=== PATIENT | male | born 1950 | race Caucasian/White ===

== ENCOUNTER 2017-02-27 09:53 | Outpatient (RCR) | payer MEDICARE, OTHER ==
--- NOTE | 2016-10-10 08:28 | Oncology Note ---
Refill request from [facility] pharmacy for tamsulosin 0.4 mg tabs take 1 tab by mouth daily quantity 90 was refilled electronically today. GAUTAM ALVAREZ STOCK CUTTER-BC, ONC Oct 10, 2016 08:27
[2017-02-23 13:33] VITALS: BP 136/85
[2017-02-23 13:46] LABS: PLATELET COUNT, AUTOMATED 177 K/uL (150-450)
[~2017-02-27 09:53] MED LIST: ALB18R INH; ASC500 PO; ASPI-1471 PO; CIP500 PO; FAMO20TA28 PO; FLAX100042 PO; FLUT16SP19 NS; FLUT1AER INH; GLUC750T10 PO; HCTZ25 PO; HYDR-389 PO; HYDROCHLOROTHIAZIDE; IBUP800T37 PO; INDO-1 PO; LEVO-85 PO; LEVO500T83 PO; LUTE1CAP PO; LYSI500C3 PO; MELO-150 PO; MULT1CAP59 PO; NIA500 PO; NIAC-8 PO; OXYGENHOME INH; PAN40 PO; PERD PO; PHEN200T32 PO; PHENA200 PO; SILD100T59 PO; TAMS0.4C70 PO; TAMS0.4C76 PO; TERA1CAP36 PO; VITAMINS
== END 2017-02-27 13:44 | disposition home or self-care (01) ==
LOC: RAON 09:53
PROVIDERS: ATTEND Radiology Radiation Oncology
DX: Z85.46 Personal history of malignant neoplasm of prostate (principal); K21.9 Gastro-esophageal reflux disease without esophagitis; Z79.899 Other long term (current) drug therapy; Z92.3 Personal history of irradiation
CPT/HCPCS: 36415; 82040; 82247; 82310; 82374; 82435; 82565; 82947; 84075; 84132; 84153; 84155; 84295; 84450; 84460; 84520; 85025; 99212

== ENCOUNTER → 2018-03-22 | Outpatient (CLI) | payer MEDICARE, OTHER ==
[~2018-03-22] MED LIST changes: -INDO-1 PO; +INDO-21 PO; +IOPAMIDOL 61% ONE
--- NOTE | 2018-03-22 09:09 | RADIOLOGY IMAGING REPORT ---
FACILITY: [facility] PATIENT NAME: Glenn Medellin : 1950 MR: [id number] V: [id number] EXAM DATE: ORDERING PHYSICIAN: DMITRIY KINNEY TECHNOLOGIST: [facility] Patient: Glenn Medellin : 1950 Visit/Account:[id number] Date of Sevice: 03/22/2018 CT scan of the abdomen and pelvis without and with contrast. HISTORY: Prostate cancer. COMPARISON: 04/11/2016. 1 mm and [address] images were obtained of the abdomen and pelvis before and after intraven ous injection of 95 mL Isovue 300. No oral contrast. One of the following dose optimization techniq ues was utilized in the performance of this exam: Automated exposure control; adjustment of the mA an d/or kV according to the patient's size; or use of an iterative reconstruction technique. Specific details can be referenced in the facility's radiology CT exam operational policy. FINDINGS: The lung bases are clear. A small amount of air is present in the right ventricle probably introduce d during the contrast injection. The liver and spleen are normal in size and free of focal defects. The gallbladder and bile ducts ar e unremarkable. The pancreas is normal in size. The portal vein is patent. The kidneys and adrenal glands are normal in size. No hydronephrosis. A 5 mm fat-containing lesion is present in the poste rior inferior left kidney, essentially unchanged. The abdominal aorta and iliac arteries are mildly ectatic, tortuous, and calcified. Radiation seeds are present in the prostate gland. The urinary bladder is nonopacified. The ureters are normal in size. Unopacified bowel loops are scattered in the abdomen and pelvis. The appendix is normal in size. Degenerative changes are present in the spine. No bulky abdominal or pelvic ailyn opathy. Moderate amounts of stool are scattered in the colon and rectum. IMPRESSION: 6 mm left renal angiomyolipoma, unchanged. Otherwise negative for evidence of metastatic disease. Report Dictated By: Carlos Enrique Lew MD at 03/22/2018 8:52 AM Report E-Signed By: Carlos Enrique Lew MD at 03/22/2018 9:05 AM WSN:[email or web address]
--- NOTE | 2018-03-22 15:19 | RADIOLOGY IMAGING REPORT ---
FACILITY: PATIENT NAME: Glenn Medellin : 1950 MR: [id number] V: [id number] EXAM DATE: ORDERING PHYSICIAN: DMITRIY KINNEY TECHNOLOGIST: Location: [facility] Patient: Glenn Medellni : 1950 Visit/Account:[id number] Date of Sevice: 03/22/2018 NM BONE SCAN COMPLETE HISTORY: Prostate cancer with rising PSA ADDITIONAL HISTORY: None. TECHNIQUE: 24.7 mCi technetium 99m HDP was injected intravenously. Delayed anterior and posterior wh ole body gamma camera images were obtained. Additional gamma camera images: None. COMPARISON: Comparison bone scan 04/11/2016 negative for metastatic disease FINDINGS: Bone radiotracer activity: There is a focus of slight increased activity seen in the rostral sternum and a focus of activity seen in the right mandible which are both new from the previous examination. There is also a focus in the medial left tibial plateau and in the right tibiotalar joint and at the first CMC joints unchanged from the prior study compatible with arthrosis. Extraosseous radiotracer activity: Unremarkable. Renal and urinary collecting system activity: Unremarkable. IMPRESSION: New focal activity in the right mandible which may represent metastasis or be reflective of dental di sease. Subtle focus in the sternum, possible metastatic disease. 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
== END ==
LOC: NUC 01:26
DX: D17.79 Benign lipomatous neoplasm of other sites (principal)
CPT/HCPCS: 36415; 74178; 78306; 82565; A9503; Q9967

== ENCOUNTER 2018-03-26 11:59 | Outpatient (RCR) | payer MEDICARE, OTHER ==
[~2018-03-26 11:59] MED LIST changes: -IOPAMIDOL 61% ONE
[2018-03-26 12:36] VITALS: BP 132/76
[2018-03-26] MEDS ORDERED: FAMO-67 PO (12:42)
[2018-03-26] MEDS ORDERED: IBUP800T37 PO (12:42)
--- NOTE | 2018-03-26 21:22 | ONCOLOGY FOLLOW UP NOTE ---
EVENT DATE: March 26, 2018 CHIEF COMPLAINT/REASON FOR EVALUATION Patient is here to go over most recent PSA and to review updated imaging requested by Dr. Clemens, including the CT scan of the abdomen and pelvis and bone scan. ONCOLOGY HISTORY [place] 6 adenocarcinoma of the prostate, status post prostate brachytherapy 06/05/16. INTERVAL HISTORY Mr. Medellin was seen with his for a followup appointment today. Clinically, he is doing well in terms of his voiding function and generalized sense of well- being. He did have an episode four to eight weeks ago where he felt fairly run down and may have had infection at that time, according to his spouse. Patient denies any significant change in his voiding pattern. His AUA score is low at 2. His initial PSA prior to the brachytherapy was 5.2 ng/mL in May 2016. The PSA had fallen in August to 3.2 and then fallen again by half to 1.6 in February 2017. For some reason, the next PSA done at [facility] two weeks ago was elevated at 3.1 ng/mL. The patient was seen by Dr. Clemens. He was noted to have tenderness on rectal exam, and he has been started on a 30-day course of antibiotics with Bactrim DS. Patient does have an appointment to follow up with Dr. Clemens in a month. Dr. Clemens requested an updated CT scan of the abdomen and pelvis and bone scan. Those studies were obtained on 03/22/18, and I reviewed them personally with the patient and his spouse on the computer. Bone scan is entirely negative with no suspicious abnormalities. There was slight uptake in the mandible, which is related to recent dental procedures in the last year. There is a tiny area of activity in the sternum, but that is a common location between the manubrium and the body of the sternum for minor uptake only, so I think that is nonspecific and essentially normal. Ribs were entirely normal, lumbar spine normal, and pelvis normal. The CT scan images were then reviewed. No signs of any pelvic lymph node enlargement. Bony structures were normal. He was noted to have a 6 mm left renal angiomyolipoma, unchanged. Prostate seed implants appear to be in good generalized distribution with an even distribution across the prostate. There is a small area in the median lobe of the prostate that does not have seeds and commonly is very difficult to put radioactive seeds there without causing some obstructive symptoms or dysuria. The cancer typically is in the peripheral zone of the gland bilaterally, so most of the radiation is focused there. COMPREHENSIVE REVIEW OF SYSTEMS Entirely negative with exception of mild shortness of breath with exertion and some joint stiffness, chronic right shoulder stiffness. MEDICATIONS 1. Tamsulosin 0.4 mg a day. 2. Flonase. 3. Aspirin. 4. Oxygen 1L at night. 5. Albuterol inhaler p.r.n. 6. Breo Ellipta 100/25 q. day. 7. Gisella p.r.n. 8. Hydrochlorothiazide 25 mg a day. 9. PPI. 10. Meloxicam 15 mg a day. ALLERGIES CIPRO, FLOXIN, FORMALDEHYDE. PAST MEDICAL HISTORY 1. [place] 6 adenocarcinoma of the prostate involving the left middle lobe 04/03/16. 2. GERD. 3. Sleep apnea. 4. DJD. 5. Asthma. 6. Depression. 7. BPH. 8. Hypertension. SURGICAL HISTORY 1. Prostate seed implant 06/05/16. 2. Fractured clavicle in childhood with repair. SOCIAL HISTORY . Formerly drank alcohol, stopped in 1998. Stopped smoking in 1978. PHYSICAL EXAMINATION GENERAL: Pleasant 66-year-old male, medium build. VITAL SIGNS: BP 132/76, pulse 59, respirations 16, O2 sat 92% on room air. LUNGS: Clear. LYMPHATICS: No lymphadenopathy. ABDOMEN: No organomegaly. RECTAL: Deferred since this was recently performed by Dr. Clemens. It should be noted that the patient does describe pain with sitting, however. DISPOSITION 1. Adenocarcinoma of the prostate, one aberrant PSA. I concur with Dr. Clemens the elevation most likely is due to a prostatitis episode or lab variation. 2. No signs of metastatic disease or local progression. PLAN Patient will follow up with Dr. Clemens in 30 days with updated blood work. He prefers to have blood work through [facility] for now. I told the patient I would like to see him again in July with an updated PSA at that time. I suspect the PSA will return to normal within the next two lab draws. The other options in the future would be to add low-dose radiotherapy with a linear accelerator or oral bicalutamide. I reassured the patient and his that his PSA is in the normal range for his age at this time, and I think we could simply follow him closely at this juncture with Urology. Patient was very reassured by the clinical exam and radiographic review today. Forty minutes were spent [id number] with the patient. More to follow at his next scheduled appointment. If the next psa is elevated, I would recommend having it repeated at the [facility] lab to determine if we are seeing lab consistency from know prior values in the past. MOLLYD
== END 2018-06-14 12:15 | disposition home or self-care (01) ==
LOC: RAON 11:59
PROVIDERS: ATTEND Radiology Radiation Oncology
DX: C61 Malignant neoplasm of prostate (principal)
CPT/HCPCS: 99212

== ENCOUNTER 2018-07-16 13:56 | Outpatient (RCR) | payer MEDICARE, OTHER ==
[~2018-07-16 13:56] MED LIST changes: +FAMO-67 PO
[2018-07-16 14:09] VITALS: BP 134/82
--- NOTE | 2018-07-17 01:20 | ONCOLOGY FOLLOW UP NOTE ---
EVENT DATE: July 16, 2018 CHIEF COMPLAINT/REASON FOR EVALUATION Known adenocarcinoma of the prostate, patient electing for prostate brachytherapy as the sole modality on 06/05/16. He is here for oncology surveillance and lab review. ONCOLOGY HISTORY 1. [place] 6 moderately differentiated adenocarcinoma of the prostate, presenting in the left lobe of the gland. Significant PSA increase from 3 to 6 ng/mL prior to the biopsy. 2. History of uroprostatitis with previous E. coli infections. 3. Known BPH, longstanding. 4. Status post palladium-103 seed implant brachytherapy covering the prostate gland, 06/05/16. No attempt to treat the seminal vesicles or immediately adjacent soft tissues at that time, or lymph nodes. STAGE T1C. INTERVAL HISTORY Mr. Medellin was seen with his spouse for an oncology followup appointment. He is co-managed by Dr. Clemens due to his complex urology history. His primary medical care is with Dr. Brunson. The patient does have an appointment to see Dr. Clemens at the end of this week, and Dr. Brunson within the next 14 days. The patient had a PSA drawn at [facility] on 07/12/18. The PSA had fallen to 3.1 ng/mL by March 2018. His original labs had a PSA in the 5-6 range. The PSA subsequently fell further to 2.8 ng/mL within the last six weeks, and now the PSA has dropped to 2.2 ng/mL, consistent with an ongoing therapeutic response. The patient did have a followup CT scan of the abdomen and pelvis and bone scan back in March, requested appropriately by Dr. Clemens. Dr. Clemens is also following an angiomyolipoma involving the kidney. No signs of metastatic disease identified. Bone scan was reviewed as well with the patient and spouse on the monitor, and there are arthritic changes in the joints but no evidence of any suspicious findings for carcinoma. MEDICATIONS 1. Aspirin. 2. Oxygen 1L at night. 3. Albuterol inhaler every four to six hours. 4. Breo Ellipta 100-25, one daily. 5. HCTZ 25 mg a day. 6. Glucosamine 75 mg b.i.d. 7. Vitamin C. 8. Lysine. 9. Protonix 40 mg a day. 10. Meloxicam 15 mg daily. ALLERGIES 1. CIPROFLOXACIN. 2. FORMALDEHYDE. PAST MEDICAL HISTORY 1. [place] 6 adenocarcinoma of the prostate involving the left middle lobe. 2. History of chronic cystoprostatitis. 3. Asthma. 4. History of GERD. 5. Depression. 6. BPH. 7. Hypertension. 8. DJD. PAST SURGICAL HISTORY 1. Prostate brachytherapy, 06/05/16. 2. Fractured clavicle in childhood with repair. SOCIAL HISTORY Patient is , accompanied by his spouse. Drank alcohol until 1998. Stopped smoking in 1978. States he had significant weight gain on [facility] and weighed 310 pounds, then dropped to 235 pounds and is back to 260 pounds at this time. REVIEW OF SYSTEMS Comprehensive review of systems notable for diminished hearing, cough with wheezing depending on smoke in the air and allergens. No neurologic and no significant urologic changes. Does have joint pain and stiffness. No GI complaints. Remainder of the comprehensive review of systems is unremarkable. Does have longstanding nervousness and worry. Denies any present depression or anxiety. PHYSICAL EXAMINATION GENERAL: A pleasant 68-year-old male of large build. VITAL SIGNS: BP 134/82, pulse 79, respirations 16, O2 saturation 91% on room air. HEENT: Unremarkable. LUNGS: Clear bilaterally today. CARDIOVASCULAR: Heart sounds regular. ABDOMEN: Soft. No gross organomegaly. RECTAL: Exam is deferred, as this is generally performed by Dr. Clemens, and PSA is falling. NEUROLOGIC: Intact. IMPRESSION This is a 68-year-old gentleman with a history of [place] 6 adenocarcinoma of the prostate. He presented with rapidly rising PSA and was found to have carcinoma involving the left lobe. He elected to have prostate brachytherapy as a sole-modality therapy, which was performed on 06/05/16. He is now essentially two years remote from treatment. From the [facility] labs, the PSA is actually falling on a serial basis. To be consistent with that lab, the PSA has actually dropped from 3.1 ng/mL down to 2.2 ng/mL within the last three months. My goal is to keep the PSA at the 0-2 range on a sustained basis. If he does have a significant rise in the PSA in the future, he would need a re-biopsy of the gland, since he has both a history of cancer as well as prostatitis. All films were reviewed with the patient and his spouse in the office, and all questions were answered to his satisfaction over a 40-minute followup appointment. Greater than 30 minutes was spent face to face with the patient for complex clinical assessment, exam and counseling. ADDENDUM Patient will have repeat PSA the first week of October (three months from now) at the [facility] labs and bring the PSA and metabolic panel over for review. We have certainly had lower PSA values at the [facility] [address]; however, it is important to keep the testing at one facility for consistency of values. MTDD
== END 2018-08-05 13:52 | disposition home or self-care (01) ==
LOC: RAON 13:56
PROVIDERS: ATTEND Radiology Radiation Oncology
DX: Z85.3 Personal history of malignant neoplasm of breast (principal); Z92.3 Personal history of irradiation
CPT/HCPCS: 99212